=== PATIENT | male | born 1980 | race Caucasian/White ===

== ENCOUNTER 2022-03-12 15:35 | Inpatient (IN) | payer OTHER ==
[~2022-03-12] VITALS: Ht 172.7 cm; Wt 68.0 kg
[2022-03-12 16:12] LABS: HEMOGLOBIN 16.6 gm/dl (14.0-17.5); RED BLOOD COUNT 5.65 M/UL (4.20-5.50); WHITE BLOOD COUNT 9.6 K/UL (4.5-11.0)
[2022-03-12 16:36] LABS: BUN/CREATININE RATIO 18 (0-10)
[2022-03-13 09:03] LABS: HEMOGLOBIN 16.9 gm/dl (14.0-17.5); RED BLOOD COUNT 5.82 M/UL (4.20-5.50); WHITE BLOOD COUNT 8.5 K/UL (4.5-11.0)
[2022-03-13] MEDS ORDERED: LEVETIRACETAM1000 MG PO (09:49)
[2022-03-13] MEDS ORDERED: BUPROPION XL150 MG PO (09:52)
[2022-03-13 10:10] LABS: BUN/CREATININE RATIO 25 (0-10)
[2022-03-14 05:06] LABS: WHITE BLOOD COUNT 8.2 K/UL (4.5-11.0)
[2022-03-14 05:21] LABS: HEMOGLOBIN 14.8 gm/dl (14.0-17.5); RED BLOOD COUNT 5.15 M/UL (4.20-5.50)
[2022-03-14 05:34] LABS: BUN/CREATININE RATIO 24 (0-10)
[2022-03-14] MEDS ORDERED: TAB-A-VITE TA400 MC1 PO (13:54)
[2022-03-14] MEDS ORDERED: VITAMIN B-1100 M1 PO (13:54)
[2022-03-14] MEDS ORDERED: FOLIC ACID 1 MG1 MG PO (13:54)
[2022-03-14] MEDS ORDERED: VALIUM 5 MG TAB5 MG PO (13:59)
== END 2022-03-14 17:01 | disposition short-term general hospital (02) | DRG 897 ==
LOC: ER1 15:35 → CCU 03-13 00:22 → CDU 03-13 00:22 → CCU 03-13 02:36
PROVIDERS: Internal Medicine; Internal Medicine Critical Care Medicine; Physician Assistant; ADMIT Internal Medicine
DX: F10.239 Alcohol dependence with withdrawal, unspecified (principal); F11.20 Opioid dependence, uncomplicated; E44.0 Moderate protein-calorie malnutrition; F19.10 Other psychoactive substance abuse, uncomplicated; Z20.822 Contact with and (suspected) exposure to COVID-19; B19.20 Unspecified viral hepatitis C without hepatic coma; F41.9 Anxiety disorder, unspecified; G40.909 Epilepsy, unspecified, not intractable, without status epilepticus; F17.210 Nicotine dependence, cigarettes, uncomplicated; Z90.49 Acquired absence of other specified parts of digestive tract; Z68.22 Body mass index [BMI] 22.0-22.9, adult
CPT/HCPCS: 70450; 80048; 80053; 80307; 81001; 82550; 82553; 82607; 82746; 83690; 83735; 84100; 84443; 84484; 85025; 96374; 96375; 96376; 99285; C9113; G0480; J1650; J2060; J3411; J3475; J7030

== ENCOUNTER 2022-03-15 23:08 | Emergency (ER) | payer OTHER ==
[~2022-03-15 23:08] MED LIST: BUPROPION XL150 MG PO; FOLIC ACID 1 MG1 MG PO; LEVETIRACETAM1000 MG PO; TAB-A-VITE TA400 MC1 PO; VALIUM 5 MG TAB5 MG PO; VITAMIN B-1100 M1 PO
[2022-03-16 00:40] LABS: HEMOGLOBIN 12.6 gm/dl (14.0-17.5); RED BLOOD COUNT 4.43 M/UL (4.20-5.50); WHITE BLOOD COUNT 8.4 K/UL (4.5-11.0)
[2022-03-16 00:58] LABS: BUN/CREATININE RATIO 23 (0-10)
[2022-03-16] MEDS ORDERED: DILANTIN 100 M100 MG PO (05:27)
== END 2022-03-16 07:45 | disposition home or self-care (01) ==
LOC: ER1 23:08
PROVIDERS: Student in an Organized Health Care Education/Training Program
DX: G40.909 Epilepsy, unspecified, not intractable, without status epilepticus (principal); F17.210 Nicotine dependence, cigarettes, uncomplicated; R47.81 Slurred speech
CPT/HCPCS: 80053; 83605; 85025; 93005; 99284; J1953

== ENCOUNTER 2022-03-17 14:31 | Observation (INO) | payer OTHER ==
[~2022-03-17] VITALS: Ht 172.7 cm; Wt 72.7 kg
[~2022-03-17 14:31] MED LIST changes: +DILANTIN 100 M100 MG PO
[2022-03-17 15:34] LABS: HEMOGLOBIN 12.7 gm/dl (14.0-17.5); RED BLOOD COUNT 4.4 M/UL (4.20-5.50); WHITE BLOOD COUNT 8.1 K/UL (4.5-11.0)
[2022-03-17 16:18] LABS: BUN/CREATININE RATIO 18 (0-10)
[2022-03-18] MEDS ORDERED: CHLORDIAZEPOXID25 MG PO (18:20)
[2022-03-18] MEDS ORDERED: BUPRENORPHIN-N1 EACH SL (18:20)
[2022-03-18] MEDS ORDERED: NARCAN4 MG (18:21)
[2022-03-18] MEDS ORDERED: PROTONIX40 MG PO (18:22)
[2022-03-18] MEDS ORDERED: PHENYTOIN SODI100 MG PO (18:23)
[2022-03-18] MEDS ORDERED: CYCLOBENZAPRINE10 MG PO (18:24)
[2022-03-18] MEDS ORDERED: HYDROXYZINE PAM25 MG PO (18:27)
[2022-03-18] MEDS ORDERED: IBU400 MG PO (18:28)
[2022-03-18] MEDS ORDERED: ONDANSETRON ODT4 MG PO (18:29)
[2022-03-19 09:40] LABS: HEMOGLOBIN 12.4 gm/dl (14.0-17.5); RED BLOOD COUNT 4.29 M/UL (4.20-5.50); WHITE BLOOD COUNT 6.5 K/UL (4.5-11.0)
[2022-03-19 10:30] LABS: BUN/CREATININE RATIO 21 (0-10)
--- NOTE | 2022-03-19 13:32 | NUR ---
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 DR VALENTINE VERBALIZED UNDERSTANDING.
[2022-03-20 17:00] LABS: HEMOGLOBIN 13.4 gm/dl (14.0-17.5); RED BLOOD COUNT 4.62 M/UL (4.20-5.50)
[2022-03-20 17:19] LABS: BUN/CREATININE RATIO 18 (0-10)
--- NOTE | 2022-03-21 09:30 | NUR ---
RN HEARD PATIENT GAGGING AND WENT IN TO BATHROOM TO CHECK ON HIM. PATIENT NOTED TO BE VOMITING IN TOILET. PATIENT LAID DOWN IN BED AND RN NOTIFIED DR. VALENTINE CIWA APPEARED TO MEASURE 14. RN HAD ALREADY GIVEN PATIENT A DOSE OF ATIVAN THIS AM. RN ASKED MD WHAT TO DO. MD ORDERED RN TO ADMINISTER ZOFRAN AND HOLD OFF ON ATIVAN PATIENT APPEARED TO BE LETHARGIC AFTER VOMITING. RN HELPED PATIENT INTO A GOWN AND MADE HIM COMFORTABLE THEN ADMINISTERED SUBLINGUAL ZOFRAN PER ORDER. RN REASSESSED CIWA LATER AND PATIENT SCORED A ZERO. RN MADE MD AWARE. MD DISCONTINUED ATIVAN PER CIWA PROTOCOL AND SCHEDULED DOSE AT 1345. RN MADE PATIENT AWARE. PATIENT HAD OBJECTIONS TO THIS BUT RN EDUCATED PATIENT THAT HE HAD MEDICATIONS FOR SYMPTOMS OF WITHDRAWAL INCLUDING NAUSEA/VOMITING, HEADACHE, AND SEIZURES. PATIENT VERBALIZED UNDERSTANDING. NO S/SX OF DISTRESS. SEIZURE PRECAUTIONS AND INSTALLMENT LOAN COLLECTOR IN PLACE PER ORDER. BED LOCKED AND LOW. CALL LIGHT WITHIN REACH.
--- NOTE | 2022-03-21 15:15 | NUR ---
PATIENT NOTIFIED RN THAT HE WAS READY TO GO HOME. RN WAS UNDER THE IMPRESSION THAT PATIENT'S PLAN OF CARE WAS TO WAIT FOR REHAB PLACEMENT. RN TALKED WITH DOOR FURRING INSTALLER MIRANDA AND NOTIFIED HER OF PATIENT'S DESIRE TO BE DISCHARGED HOME. CASE MANAGEMENT NOTIFIED PHYSICIAN AND PHYSICIAN'S PRINTER APPRENTICE. DISCHARGE PLAN IN PLACE. RN AND DOOR FURRING INSTALLER MADE PATIENT AWARE AND PATIENT STATED HE WOULD WAIT ON HIS RIDE BUT IT MAY BE LATER IN THE NIGHT. RN INSTRUCTED PATIENT TO NOTIFY HER WHEN HIS RIDE ARRIVED. NO S/SX OF DISTRESS. SEIZURE PRECAUTIONS AND TELEMETRY IN PLACE PER ORDER. BED LOCKED AND LOW. CALL LIGHT WITHIN REACH.
[2022-03-21] MEDS ORDERED: PHENYTOIN SODI100 MG PO (16:17)
[2022-03-21] MEDS ORDERED: KEPPRA 500 MG500 MG PO (16:17)
--- NOTE | 2022-03-22 11:46 | NUR ---
PATIENT INFORMED RN THAT HIS RIDE WOULD BE HERE AT 3:30 PM. RN NOTIFIED HOGUE CLER.
--- NOTE | 2022-03-22 16:05 | NUR ---
PATIENT REQUESTED RN SET UP TRANSFER TO [facility] HE IS UNABLE TO FIND TRANSPORTATION AFTER DISCHARGE. RN SPOKE WITH ACCOUNT TECHNICIAN AND DR. VALENTINE. BOTH AGREED THAT PATIENT WAS TO BE DISCHARGED PER ORDER AND THE FACILITY COULD OFFER PATIENT A CAB TO GET TO WHERE HE NEEDED. PATIENT MADE AWARE AND AGREED. RN REMOVED PATIENT'S WAITRESS AND IV. PENDING PICKUP. AIRCRAFT ENGINE MECHANIC OVERHAUL TO SCHEDULE CAB RIDE TO PATIENT'S DESIRED DESTINATION. PATIENT REQUESTED A DINNER TRAY BEFORE DISCHARGE. DIETARY STATED THEY WOULD BRING PATIENT A TRAY PROMPTLY. PATIENT MADE AWARE. RN TO NOTIFY PATIENT WHEN CAB ARRIVED TO PICK HIME UP. NO S/SX OF PAIN OR DISTRESS. BED LOCKED AND LOW. CALL LIGHT WITHIN REACH.
== END 2022-03-22 17:04 | disposition home or self-care (01) ==
LOC: ER1 14:31 → MED SURG 4 03-18 17:14 → CDU 03-18 17:14 → MED SURG 4 03-18 18:11
PROVIDERS: Family Medicine; Internal Medicine Infectious Disease; Physician Assistant; ADMIT Internal Medicine
DX: T43.621A Poisoning by amphetamines, accidental (unintentional), initial encounter (principal); T40.1X1A Poisoning by heroin, accidental (unintentional), initial encounter; T51.8X1A Toxic effect of other alcohols, accidental (unintentional), initial encounter; G40.509 Epileptic seizures related to external causes, not intractable, without status epilepticus; F10.10 Alcohol abuse, uncomplicated; F19.10 Other psychoactive substance abuse, uncomplicated; B19.20 Unspecified viral hepatitis C without hepatic coma; F41.9 Anxiety disorder, unspecified; Z72.0 Tobacco use; Z91.14 Patient's other noncompliance with medication regimen; Z88.6 Allergy status to analgesic agent; Z88.8 Allergy status to other drugs, medicaments and biological substances; Z20.822 Contact with and (suspected) exposure to COVID-19
CPT/HCPCS: 36415; 70450; 70551; 71045; 80048; 80053; 80307; 81001; 83735; 85025; 93005; 96374; 96375; 99285; G0378; G0480; J1953; J2060; Q0177; U0002

== ENCOUNTER 2022-04-03 00:08 | Inpatient (IN) | payer OTHER ==
[~2022-04-03] VITALS: Ht 172.7 cm; Wt 71.7 kg
[~2022-04-03 00:08] MED LIST changes: +BUPRENORPHIN-N1 EACH SL; +CHLORDIAZEPOXID25 MG PO; +CYCLOBENZAPRINE10 MG PO; +HYDROXYZINE PAM25 MG PO; +IBU400 MG PO; +KEPPRA 500 MG500 MG PO; +NARCAN4 MG; +ONDANSETRON ODT4 MG PO; +PHENYTOIN SODI100 MG PO; +PROTONIX40 MG PO
[2022-04-03 00:53] LABS: HEMOGLOBIN 14.3 gm/dl (14.0-17.5); RED BLOOD COUNT 4.9 M/UL (4.20-5.50); WHITE BLOOD COUNT 7.9 K/UL (4.5-11.0)
[2022-04-03 01:11] LABS: BUN/CREATININE RATIO 20 (0-10)
--- NOTE | 2022-04-03 09:41 | NUR ---
PT ASKS TO BE REASSESSED FOR ATIVAN DOSAGE. REQUESTS 4MG DOSE. IS AWARE OF THE ASSESSMENT PROCESS SUCH CHECKING FOR TREMORS/ANXIETY.
--- NOTE | 2022-04-03 16:45 | NUR ---
PT HAS SLEPT/RESTED SINCE 1300. PT AWAKE, ASKS FOR ATIVAN AND WANTS TO BE ASSESSED. I GAVE 2MG ATIVAN BASED UPON ASSESSMENT AND CIWA PROTOCOL. PT IS ANGRY, STATES WE ARE NOT GIVING HIM ALL HIS MEDICATIONS, STATES HE DID NOT RECEIVE HIS SUBOXONE THAT WAS GIVEN AT 0942. PT DEMANDS TO CALL [employer], I CALLED THEM. HE SPOKE WITH GERMAIN VEGA, A STAFF MEMBER THERE, NURSE ALSO SPOKE WITH THEM. DR. SALAZAR NOTIFIED AND AT BEDSIDE AT 1700
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
[2022-04-05 05:36] LABS: HEMOGLOBIN 13.4 gm/dl (14.0-17.5); RED BLOOD COUNT 4.66 M/UL (4.20-5.50); WHITE BLOOD COUNT 7.4 K/UL (4.5-11.0)
[2022-04-05 05:59] LABS: BUN/CREATININE RATIO 14 (0-10)
[2022-04-06 05:18] LABS: BUN/CREATININE RATIO 20 (0-10)
[2022-04-07 07:34] LABS: BUN/CREATININE RATIO 16 (0-10)
[2022-04-08 08:08] LABS: BUN/CREATININE RATIO 18 (0-10)
--- NOTE | 2022-04-08 15:02 | NUR ---
GAVE REPORT TO JEN ON MEDSURGE FLOOR.
--- NOTE | 2022-04-08 18:14 | NUR ---
PATIENT NOTED TO HAVE SCANT AMOUNT OF BLOOD COMING FROM HEAD OF PENIS. RN RECEIVED IN REPORT THAT URINARY CATHETER HAD BEEN REMOVED EARLIER TODAY. RN NOTIFIED DR. CALVILLO WHO INSTRUCTED RN TO PUT GAUZE ON AREA AND LEAVE IN PLACE TO STOP BLEEDING.
[2022-04-10] MEDS ORDERED: DILANTIN100 MG PO (02:06)
== END 2022-04-09 14:14 | disposition home or self-care (01) | DRG 897 ==
LOC: ER1 00:08 → CCU 02:21 → CDU 02:21 → CCU 03:53 → M/S 04-08 15:19
PROVIDERS: Emergency Medicine; Internal Medicine; ADMIT Internal Medicine
PROC: HZ2ZZZZ Detoxification Services for Substance Abuse Treatment (ICD-10-PCS; principal; 2022-04-03)
DX: F10.239 Alcohol dependence with withdrawal, unspecified (principal); F11.20 Opioid dependence, uncomplicated; F13.239 Sedative, hypnotic or anxiolytic dependence with withdrawal, unspecified; R33.8 Other retention of urine; G40.909 Epilepsy, unspecified, not intractable, without status epilepticus; Z72.0 Tobacco use; Z88.8 Allergy status to other drugs, medicaments and biological substances; Z98.890 Other specified postprocedural states
CPT/HCPCS: 36415; 80048; 80053; 80307; 83735; 85025; 85027; 96374; 96376; 99285; G0480; J2060; J2405

== ENCOUNTER 2022-04-09 22:20 | Emergency (ER) | payer OTHER ==
[2022-04-09 23:30] LABS: HEMOGLOBIN 13.4 gm/dl (14.0-17.5); RED BLOOD COUNT 4.63 M/UL (4.20-5.50)
[2022-04-09 23:54] LABS: BUN/CREATININE RATIO 17 (0-10)
[2022-04-10] MEDS ORDERED: DILANTIN100 MG PO (02:06)
== END 2022-04-10 02:35 | disposition home or self-care (01) ==
LOC: ER1 22:20
PROVIDERS: Family Medicine
DX: R56.9 Unspecified convulsions (principal); F17.200 Nicotine dependence, unspecified, uncomplicated; Z88.6 Allergy status to analgesic agent; Z88.8 Allergy status to other drugs, medicaments and biological substances; Z81.1 Family history of alcohol abuse and dependence; Z79.891 Long term (current) use of opiate analgesic
CPT/HCPCS: 80053; 80185; 82962; 85025; 93005; 96374; 96375; 99285; G0480; J1165; J2405

== ENCOUNTER 2022-04-27 17:47 | Emergency (ER) | payer OTHER ==
[~2022-04-27 17:47] MED LIST changes: +DILANTIN100 MG PO
[2022-04-27 18:50] LABS: HEMOGLOBIN 15.1 gm/dl (14.0-17.5); RED BLOOD COUNT 5.12 M/UL (4.20-5.50); WHITE BLOOD COUNT 7.1 K/UL (4.5-11.0)
[2022-04-27 19:18] LABS: BUN/CREATININE RATIO 22 (0-10)
== END 2022-04-27 21:19 | disposition home or self-care (01) ==
LOC: ER1 17:47
PROVIDERS: Preventive Medicine Occupational Medicine
DX: G40.909 Epilepsy, unspecified, not intractable, without status epilepticus (principal); Z20.822 Contact with and (suspected) exposure to COVID-19
CPT/HCPCS: 0240U; 71045; 80053; 80185; 83690; 85025; 86140; 96374; 99284; J1953

== ENCOUNTER 2022-05-29 12:37 | Emergency (ER) | payer OTHER ==
[~2022-05-29] VITALS: Ht 172.7 cm; Wt 81.6 kg
[2022-05-29 14:18] LABS: HEMOGLOBIN 15.5 gm/dl (14.0-17.5); RED BLOOD COUNT 5.25 M/UL (4.20-5.50)
[2022-05-29 14:46] LABS: BUN/CREATININE RATIO 23 (0-10)
== END 2022-05-29 18:06 | disposition home or self-care (01) ==
LOC: ER1 12:37
PROVIDERS: Emergency Medicine
DX: R56.9 Unspecified convulsions (principal); Z76.0 Encounter for issue of repeat prescription; F17.200 Nicotine dependence, unspecified, uncomplicated
CPT/HCPCS: 71045; 80053; 80185; 81001; 82550; 82553; 84484; 85025; 93005; 99285; J1953; J7050; Q2009